=== PATIENT | male | born 1990 | race African-American/Black ===

== ENCOUNTER 2017-05-18 02:48 | Emergency (ER) | payer SELFPAY ==
[~2017-05-18] VITALS: Ht 172.7 cm; Wt 63.0 kg
[2017-05-18 03:03] VITALS: BP 124/88
== END 2017-05-18 03:15 | disposition left against medical advice (07) ==
LOC: ER 03:03
DX: R53.1 Weakness (principal); Z53.21 Procedure and treatment not carried out due to patient leaving prior to being seen by health care provider